=== PATIENT | male | born 1955 | race Caucasian/White ===

== ENCOUNTER 2016-05-29 08:52 | Inpatient (IN) | payer OTHER ==
[~2016-05-29] VITALS: Ht 177.8 cm; Wt 95.5 kg
[~2016-05-29 08:52] MED LIST: CARVEDILOL25 M1 PO; CLOPIDOGREL75 M1 PO; COL100 PO; COZAAR50 MG PO; DEXPF IV; FER300 PO; FLO4 PO; GABAPENTIN100 M2 PO; GEMFIBROZIL600 MG PO; GOOD SENSE ASPI81 M3 PO; HUMULIN R100 U/1 M1 SC; KLO0.5 PO; LASIX40 MG PO; LEVEMIR100 U/M1 SQ; LIPI20 PO; LIPITOR80 MG PO; MACROBID100 MG PO; METOPROLOL TART25 M1 PO; NIT0.4 SL; NOR5 PO; PENTOXIFYLLINE400 MG PO; RENVELA800 M1 PO; THERAGRAN-M1 TA4 PO; ZOFI IV
[2016-05-29 10:26] LABS: PLATELET COUNT 269 x10^3mcL (130-400)
[2016-05-29 10:27] LABS: ALBUMIN 4.2 g/dL (3.4-5.0); BILIRUBIN TOTAL 0.45 mg/dL (0.20-1.00); C REACTIVE PROTEIN 0.2 mg/dL (<=0.9); CALCIUM 9.2 mg/dL (8.5-10.1); CARBON DIOXIDE 29.9 mmol/L (21-32); POTASSIUM SERUM 4.7 mmol/L (3.5-5.1); TOTAL PROTEIN, SERUM 7.7 g/dL (6.4-8.2)
[2016-05-29 10:30] LABS: BASOPHIL % 0 % (0-2); RED CELL DISTRIBUTION WIDTH 15.7 % (11.5-14.5)
[2016-05-29 10:40] LABS: CREATININE SERUM 6.3 mg/dL (0.7-1.3)
[2016-05-29 11:22] LABS: UA SPECIFIC GRAVITY 1.015 (1.005-1.035); microscopic required? YES; urine erythrocyte 2+ (NEGATIVE)
[2016-05-29] MEDS ORDERED: LOSARTAN PO (11:24)
[2016-05-29 11:28] LABS: ERYTHROCYTE SED RATE 46 mm/hr (0-20)
[2016-05-29 13:15] VITALS: BP 225/107
[2016-05-29 13:40] LABS: CHOLESTEROL/HDL RATIO 4.5; MAGNESIUM 1.9 mg/dL (1.8-2.4); PHOSPHOROUS 5.8 mg/dL (2.5-4.9)
[2016-05-29 13:42] LABS: T3 TOTAL 0.6 ng/mL
[2016-05-29 13:58] LABS: FREE T4 1.33 ng/dL (0.76-1.46); FREE THYROXINE INDEX 3.3 ug/dL (1.4-4.5)
[2016-05-29] MEDS ORDERED: MINOXIDIL2.5 MG PO (14:50)
[2016-05-29 15:42] LABS: AMPHETAMINE QUAL UR NONE DETECTED (NEG <=1000)
[2016-05-29 17:40] VITALS: BP 199/89
[2016-05-29 20:57] LABS: CALCIUM 8.5 mg/dL (8.5-10.1); CARBON DIOXIDE 26.8 mmol/L (21-32); POTASSIUM SERUM 5.2 mmol/L (3.5-5.1)
[2016-05-29 21:00] LABS: CREATININE SERUM 7.5 mg/dL (0.7-1.3)
[2016-05-29 22:07] VITALS: BP 165/66
[2016-05-30 06:17] LABS: CALCIUM 8.8 mg/dL (8.5-10.1); CARBON DIOXIDE 26.4 mmol/L (21-32); PHOSPHOROUS 6.9 mg/dL (2.5-4.9)
[2016-05-30 06:35] LABS: CREATININE SERUM 8.1 mg/dL (0.7-1.3)
[2016-05-30 06:43] LABS: PLATELET COUNT 265 x10^3mcL (130-400)
[2016-05-30 06:45] LABS: BASOPHIL % 0 % (0-2); RED CELL DISTRIBUTION WIDTH 15.6 % (11.5-14.5)
[2016-05-30 07:28] VITALS: BP 139/62
[2016-05-30 08:45] VITALS: BP 125/58
[2016-05-30 13:50] VITALS: BP 117/53
[2016-05-30 16:50] VITALS: BP 115/62
== END 2016-05-30 20:05 | disposition left against medical advice (07) | DRG 606 ==
LOC: ED 08:52 → DU 11:09
PROVIDERS: Emergency Medicine; ADMIT Family Medicine
DX: L29.8 Other pruritus (principal); N18.6 End stage renal disease; N17.0 Acute kidney failure with tubular necrosis; I12.0 Hypertensive chronic kidney disease with stage 5 chronic kidney disease or end stage renal disease; D68.69 Other thrombophilia; E11.22 Type 2 diabetes mellitus with diabetic chronic kidney disease; E11.65 Type 2 diabetes mellitus with hyperglycemia; E11.42 Type 2 diabetes mellitus with diabetic polyneuropathy; E11.51 Type 2 diabetes mellitus with diabetic peripheral angiopathy without gangrene; I16.0 Hypertensive urgency; E87.8 Other disorders of electrolyte and fluid balance, not elsewhere classified; E83.39 Other disorders of phosphorus metabolism; E78.5 Hyperlipidemia, unspecified; E05.80 Other thyrotoxicosis without thyrotoxic crisis or storm; Z99.2 Dependence on renal dialysis; Z79.4 Long term (current) use of insulin; Z68.30 Body mass index [BMI] 30.0-30.9, adult; D63.1 Anemia in chronic kidney disease
CPT/HCPCS: 80307; 82962; 83880; 84439; J0171; J0360; J1200; J1815; J2270; J2930; J3490; Q0092

== ENCOUNTER 2016-09-11 21:40 | Emergency (ER) | payer OTHER, MEDICAID ==
[~2016-09-11 21:40] MED LIST changes: +LOSARTAN PO; +MINOXIDIL2.5 MG PO
[2016-09-11 23:04] VITALS: BP 188/100
== END 2016-09-11 23:04 | disposition home or self-care (01) ==
LOC: ED 21:40
DX: H10.023 Other mucopurulent conjunctivitis, bilateral (principal); I12.9 Hypertensive chronic kidney disease with stage 1 through stage 4 chronic kidney disease, or unspecified chronic kidney disease; E11.22 Type 2 diabetes mellitus with diabetic chronic kidney disease; N18.9 Chronic kidney disease, unspecified; N17.9 Acute kidney failure, unspecified; Z99.2 Dependence on renal dialysis

== ENCOUNTER 2017-01-31 18:24 | Inpatient (IN) | payer OTHER, MEDICAID ==
[~2017-01-31] VITALS: Ht 177.8 cm; Wt 101.7 kg
[2017-01-31 18:27] VITALS: Ht 177.8 cm; Wt 101.7 kg
[2017-01-31 20:30] LABS: ALBUMIN 3.8 g/dL (3.4-5.0); BILIRUBIN TOTAL 0.4 mg/dL (0.20-1.00); CALCIUM 8.6 mg/dL (8.5-10.1); CARBON DIOXIDE 29.3 mmol/L (21-32); POTASSIUM SERUM 5.5 mmol/L (3.5-5.1); TOTAL PROTEIN, SERUM 7.4 g/dL (6.4-8.2)
[2017-01-31 20:34] LABS: BASOPHIL % 0.3 % (0-2); CREATININE SERUM 6.4 mg/dL (0.7-1.3); PLATELET COUNT 145 x10^3mcL (130-400); RED CELL DISTRIBUTION WIDTH 15.8 % (11.5-14.5)
[2017-01-31 22:49] VITALS: BP 170/90
[2017-01-31 23:00] VITALS: BP 170/90
[2017-02-01] VITALS (7 sets, daily range): BP systolic 157–194; BP diastolic 73–90
[2017-02-01 01:46] LABS: FREE T4 1.02 ng/dL (0.76-1.46); FREE THYROXINE INDEX 2.6 ug/dL (1.4-4.5); T4(THYROXINE) 7.1 ug/dL (4.7-13.3)
[2017-02-01 02:09] LABS: T3 TOTAL 0.68 ng/mL
[2017-02-01 02:46] LABS: MAGNESIUM 2.4 mg/dL (1.8-2.4); PHOSPHOROUS 6.3 mg/dL (2.5-4.9)
[2017-02-01 02:55] LABS: CHOLESTEROL/HDL RATIO 3.1
[2017-02-01 06:37] LABS: BASOPHIL % 0.5 % (0-2); PLATELET COUNT 134 x10^3mcL (130-400)
[2017-02-01 07:06] LABS: RED CELL DISTRIBUTION WIDTH 15.9 % (11.5-14.5)
[2017-02-01 07:18] LABS: CALCIUM 8.2 mg/dL (8.5-10.1); CARBON DIOXIDE 29.5 mmol/L (21-32); MAGNESIUM 2.3 mg/dL (1.8-2.4); PHOSPHOROUS 6.8 mg/dL (2.5-4.9)
[2017-02-01 07:26] LABS: CREATININE SERUM 7.2 mg/dL (0.7-1.3)
[2017-02-01 15:14] LABS: IRON 53 ug/dL (65-170)
[2017-02-01 15:22] LABS: TOTAL IRON BINDING CAPACITY 196 ug/dL (250-450)
[2017-02-01 15:25] LABS: RED BLOOD CELLS 2.84 M/mm3 (4.52-5.90)
[2017-02-02 05:32] VITALS: BP 188/83
[2017-02-02 06:33] LABS: BASOPHIL % 1.8 % (0-2)
[2017-02-02 06:41] LABS: CALCIUM 8.4 mg/dL (8.5-10.1); CARBON DIOXIDE 26.8 mmol/L (21-32); MAGNESIUM 2.3 mg/dL (1.8-2.4); PHOSPHOROUS 7.8 mg/dL (2.5-4.9)
[2017-02-02 06:49] LABS: CREATININE SERUM 9.1 mg/dL (0.7-1.3); POTASSIUM SERUM 5.9 mmol/L (3.5-5.1)
[2017-02-02 06:52] LABS: PLATELET COUNT 118 x10^3mcL (130-400); RED CELL DISTRIBUTION WIDTH 14.8 % (11.5-14.5)
[2017-02-02 09:08] VITALS: BP 198/87
[2017-02-02 11:11] VITALS: BP 168/80
[2017-02-02 13:15] VITALS: BP 120/50
[2017-02-02] MEDS ORDERED: LEVAQUIN500 M1 PO (15:36)
[2017-02-02] MEDS ORDERED: CLEOCIN HCL300 MG PO (15:37)
[2017-02-02] MEDS ORDERED: LAC PO (15:45)
[2017-02-02 16:02] VITALS: BP 120/50
== END 2017-02-02 16:40 | disposition home or self-care (01) | DRG 177 ==
LOC: ED 18:24 → DU 21:29
PROVIDERS: Emergency Medicine; ADMIT Family Medicine
DX: J69.0 Pneumonitis due to inhalation of food and vomit (principal); N18.6 End stage renal disease; I50.43 Acute on chronic combined systolic (congestive) and diastolic (congestive) heart failure; N17.0 Acute kidney failure with tubular necrosis; D68.69 Other thrombophilia; I13.2 Hypertensive heart and chronic kidney disease with heart failure and with stage 5 chronic kidney disease, or end stage renal disease; E11.22 Type 2 diabetes mellitus with diabetic chronic kidney disease; E11.65 Type 2 diabetes mellitus with hyperglycemia; I16.0 Hypertensive urgency; M94.0 Chondrocostal junction syndrome [Tietze]; E83.39 Other disorders of phosphorus metabolism; R13.10 Dysphagia, unspecified; D64.9 Anemia, unspecified; E87.5 Hyperkalemia; Z99.2 Dependence on renal dialysis; Z79.82 Long term (current) use of aspirin; Z68.32 Body mass index [BMI] 32.0-32.9, adult; F17.210 Nicotine dependence, cigarettes, uncomplicated
CPT/HCPCS: 82962; 83880; 84439; 90658; 99406; A4719; J0456; J0696; J1956; J3490; J7030; J7040; J7620; Q0092

== ENCOUNTER 2018-07-21 13:49 | Emergency (ER) | payer OTHER, MEDICAID ==
[~2018-07-21] VITALS: Ht 177.8 cm; Wt 96.6 kg
[~2018-07-21 13:49] MED LIST changes: +CLEOCIN HCL300 MG PO; +LAC PO; +LEVAQUIN500 M1 PO
[2018-07-21 13:55] VITALS: Ht 177.8 cm; Wt 96.6 kg
[2018-07-21 14:47] LABS: BASOPHIL % 1.4 % (0-2); PLATELET COUNT 165 x10^3mcL (130-400)
[2018-07-21 14:54] LABS: RED CELL DISTRIBUTION WIDTH 16.9 % (11.5-14.5)
[2018-07-21 15:24] VITALS: BP 156/85
[2018-07-21 15:36] LABS: BILIRUBIN TOTAL 0.44 mg/dL (0.20-1.00); CALCIUM 8.9 mg/dL (8.5-10.1); CARBON DIOXIDE 31.7 mmol/L (21-32); POTASSIUM SERUM 4.3 mmol/L (3.5-5.1); T4(THYROXINE) 9.3 ug/dL (4.7-13.3); TOTAL PROTEIN, SERUM 8.2 g/dL (6.4-8.2)
[2018-07-21 15:58] LABS: CREATININE SERUM 6.9 mg/dL (0.7-1.3)
== END 2018-07-21 15:25 | disposition left against medical advice (07) ==
LOC: ED 13:49
PROVIDERS: Emergency Medicine
DX: I21.4 Non-ST elevation (NSTEMI) myocardial infarction (principal); E87.3 Alkalosis; R06.89 Other abnormalities of breathing; R09.02 Hypoxemia; E78.00 Pure hypercholesterolemia, unspecified; I45.10 Unspecified right bundle-branch block; D64.9 Anemia, unspecified; E11.22 Type 2 diabetes mellitus with diabetic chronic kidney disease; I12.0 Hypertensive chronic kidney disease with stage 5 chronic kidney disease or end stage renal disease; N18.6 End stage renal disease; Z99.2 Dependence on renal dialysis; Z95.1 Presence of aortocoronary bypass graft
CPT/HCPCS: 36415; 83880